=== PATIENT | male | born 1960 | race Asian ===

== ENCOUNTER 2018-11-17 16:01 | Inpatient (IN) | payer MEDICARE, MEDICAID ==
[~2018-11-17] VITALS: Ht 174 cm; Wt 69.9 kg
[2018-11-17 16:27] LABS: BASOPHILS # (AUTO) 0.1 K/uL (0.0-8.0); EOSINOPHILS # (AUTO) 0.1 K/uL (0.0-0.7); EOSINOPHILS % (AUTO) 2.3 % (0.0-7.0); HEMATOCRIT 38.5 % (36.7-47.1); HEMOGLOBIN 12.7 g/dL (12.5-16.3); LYMPHOCYTES # (AUTO) 1.5 K/uL (20.0-40.0); LYMPHOCYTES % (AUTO) 24.1 % (20.5-51.5); MEAN CORPUSCULAR HEMOGLOBIN 26.4 uug (23.8-33.4); MEAN CORPUSCULAR HGB CONC 33 g/dL (32.5-36.3); MONOCYTES # (AUTO) 0.5 K/uL (2.0-10.0); MONOCYTES % (AUTO) 7.8 % (0.0-11.0); NEUTROPHILS % (AUTO) 64.8 % (38.5-71.5); PLATELET COUNT (AUTO) 254 K/uL (152-348); RED BLOOD CELL COUNT(AUTO) 4.81 MIL/uL (4.06-5.63); WHITE BLOOD COUNT (AUTO) 6.2 K/uL (3.6-10.2)
[2018-11-17 16:31] LABS: CARBON DIOXIDE 28 mmol/L (21-32); CHLORIDE 105 mmol/L (98-107); CREATININE 1.2 mg/dL (0.6-1.3); GLUCOSE 117 mg/dL (74-106); POTASSIUM 4.1 mmol/L (3.5-5.1); UREA NITROGEN, BLOOD 16 mg/dL (7-18)
[2018-11-17 16:37] LABS: ALANINE AMINOTRANSFERASE 29 U/L (16-63); ALKALINE PHOSPHATASE 98 U/L (50-136); ASPARTATE AMINOTRANSFERASE 23 U/L (15-37); BILIRUBIN,DIRECT 0.1 mg/dL (0.0-0.2); BILIRUBIN,TOTAL 0.5 mg/dL (0.2-1.0); TOTAL PROTEIN, SERUM 8.7 g/dL (6.4-8.2)
--- NOTE | 2018-11-17 16:37 | NUR ---
pt rubbing both eyes and co dizziness. pt says was not dizzy last night but when asked if he was dizzy this morning, he said he was. md notified.
[2018-11-17 16:38] LABS: ACETAMINOPHEN < 2.0 ug/mL (10-30); ETHANOL < 3 MG/DL (0-0)
[2018-11-17] MEDS ORDERED: CLON0.5T PO (16:41)
[2018-11-17] MEDS ORDERED: LANS30CA54 PO (16:41)
[2018-11-17] MEDS ORDERED: MULT-213 PO (16:41)
[2018-11-17] MEDS ORDERED: CITA20TA19 PO (16:41)
[2018-11-17] MEDS ORDERED: METF-442 PO (16:41)
[2018-11-17] MEDS ORDERED: MAGN400T6 PO (16:41)
[2018-11-17] MEDS ORDERED: LOSA100T31 PO (16:41)
[2018-11-17] MEDS ORDERED: TAMS-3 PO (16:41)
[2018-11-17] MEDS ORDERED: QUET100T PO (16:41)
[2018-11-17] MEDS ORDERED: MAGN400O6 PO (16:50)
[2018-11-17] MEDS ORDERED: ATOR40TA PO (16:50)
[2018-11-17] MEDS ORDERED: BISA10SU61 RC (16:50)
[2018-11-17] MEDS ORDERED: GLUC1KIT IM (16:50)
[2018-11-17] MEDS ORDERED: METO50TA16 PO (16:50)
[2018-11-17] MEDS ORDERED: ACET-2605 PO (16:50)
[2018-11-17] MEDS ORDERED: ACET-2154 PO (16:50)
[2018-11-17] MEDS ORDERED: AMIN30LI2 PO (16:50)
[2018-11-17] MEDS ORDERED: DOCU-141 PO (16:50)
[2018-11-17] MEDS ORDERED: AMLO5TAB9 PO (16:50)
[2018-11-17] MEDS ORDERED: NA P133E RC (16:50)
[2018-11-17] MEDS ORDERED: METO-295 PO (16:50)
--- NOTE | 2018-11-17 17:59 | NUR ---
pt had small bm. perineal care provided.
--- NOTE | 2018-11-17 18:33 | NUR ---
called art for psych eval.
--- NOTE | 2018-11-17 19:25 | NUR ---
Pt medically cleared by Dr. Bridges.
--- NOTE | 2018-11-17 19:50 | NUR ---
Keith REEDERW arrived to ER for pt psych eval.
--- NOTE | 2018-11-17 20:01 | NUR ---
Art Capilla REAL ESTATE COORDINATOR at bedside for psych eval.
--- NOTE | 2018-11-17 20:54 | NUR ---
Report given to [facility].
[2018-11-17] MEDS ORDERED: LORAZEPAM 2 MG/1 ML VIAL IM ONE (21:30)
[2018-11-17] MEDS ORDERED: MAG HYDROX/AL HYDROX/SIMETH 30 ML LIQUID UDC PO PRN (21:30)
[2018-11-17] MEDS ORDERED: MAGNESIUM HYDROXIDE 30 ML LIQUID UDC PO PRN (21:30)
[2018-11-17] MEDS ORDERED: TEMAZEPAM 7.5 MG CAPSULE PO PRN (21:30)
[2018-11-17] MEDS ORDERED: LORAZEPAM 0.5 MG TABLET PO PRN (21:30)
[2018-11-17] MEDS ORDERED: BLOOD SUGAR DIAGNOSTIC 1 EACH STRIP VI ONE (21:30)
[2018-11-17] MEDS: BLOOD SUGAR DIAGNOSTIC 1 EACH STRIP VI SCH (21:35)
--- NOTE | 2018-11-17 22:34 | NUR ---
Admission Note: 58 year old male brought to MHU from ER via wheelchair, accompanied by ER staff. Patient admitted on a 5150 for GD under the care of Dr. Denton and Dr. Cross. Per hold: Patient is disoriented, confused and disorganized. Patient is a poor historian. He is agitated. non compliant with care. patient has poor insight and impulse control. Impaired judgement. patient is not able to provide for his food mcfp or clothing due to a mental disorder. Upon admission to the unit, oriented to the environment, Pt was agitated, banging on the table, irritated, uncooperative with care, avoids answering questions, guarded, disoriented, confused and disorganized. Reported to Dr. Denton. Received new order Ativan 1 mg Im x 1 now. Patient did not sign any admission paper work. cosigned with licensed staff. All information obtained through previous medical record. No sign or symptom of resp. distress, no indication of pain or discomfort. Patient was checked for contraband. Skin assessment was done, skin intact, no signs of discoloration, bruises or redness. No lice found. Valuables and belongings checked and were placed in the locker. Advisement and patient rights handbook given and explained to pt, will need reinforcement.
[2018-11-18] MEDS ORDERED: MAGNESIUM HYDROXIDE 30 ML LIQUID UDC PO PRN (00:15)
[2018-11-18] MEDS ORDERED: BISACODYL 10 MG SUPP.RECT RC PRN (00:15)
[2018-11-18] MEDS ORDERED: INSULIN REGULAR, HUMAN 300 UNIT/3 ML VIAL SQ PRN (00:15)
[2018-11-18] MEDS ORDERED: FLEET ENEMA 133 ML BOTTLE RC PRN (00:15)
[2018-11-18] MEDS ORDERED: DEXTROSE 50% 50 ML DISP.SYRIN IV PRN ×2 (00:15)
[2018-11-18] MEDS: BLOOD SUGAR DIAGNOSTIC 1 EACH STRIP VI SCH ×5 (06:34→20:36)
[2018-11-18] MEDS: PANTOPRAZOLE SODIUM 40 MG TABLET.DR PO SCH (06:38)
[2018-11-18 07:14] LABS: EOSINOPHILS # (AUTO) 0.1 K/uL (0.0-0.7); EOSINOPHILS % (AUTO) 2.5 % (0.0-7.0); MONOCYTES # (AUTO) 0.4 K/uL (2.0-10.0)
[2018-11-18 07:24] LABS: BILIRUBIN,TOTAL 0.6 mg/dL (0.2-1.0); CREATININE 1.3 mg/dL (0.6-1.3); POTASSIUM 4.3 mmol/L (3.5-5.1); TOTAL PROTEIN, SERUM 9.1 g/dL (6.4-8.2)
[2018-11-18 07:30] VITALS: BP 129/76
[2018-11-18] MEDS ORDERED: BLOOD SUGAR DIAGNOSTIC 1 EACH STRIP VI SCH (07:30)
[2018-11-18 07:36] LABS: BASOPHILS # (AUTO) 0.1 K/uL (0.0-8.0); BASOPHILS % (AUTO) 1.2 % (0.0-2.0); LYMPHOCYTES # (AUTO) 1.4 K/uL (20.0-40.0); LYMPHOCYTES % (AUTO) 26.9 % (20.5-51.5); MEAN CORPUSCULAR HEMOGLOBIN 25.2 uug (23.8-33.4); MEAN CORPUSCULAR HGB CONC 32 g/dL (32.5-36.3); MEAN CORPUSCULAR VOLUME 79.2 fL (73.0-96.2); MONOCYTES % (AUTO) 7.6 % (0.0-11.0); NEUTROPHILS # (AUTO) 3.3 K/uL (1.8-8.9); NEUTROPHILS % (AUTO) 61.8 % (38.5-71.5); PLATELET COUNT (AUTO) 260 K/uL (152-348); RED BLOOD CELL COUNT(AUTO) 5.06 MIL/uL (4.06-5.63); WHITE BLOOD COUNT (AUTO) 5.3 K/uL (3.6-10.2)
[2018-11-18 07:37] LABS: HEMATOCRIT 40.1 % (36.7-47.1); HEMOGLOBIN 12.7 g/dL (12.5-16.3)
[2018-11-18] MEDS ORDERED: Medication Not On Formulary EA (Amino Acids/Protein Hydrolys (Pro-Stat Liquid) 30 ML) PO SCH (09:00)
[2018-11-18] MEDS ORDERED: Medication Not On Formulary EA (Multivitamins W-Minerals (Multivitamin With Minerals) 1 PO SCH (09:00)
[2018-11-18] MEDS ORDERED: Medication Not On Formulary EA (Losartan Potassium 100 MG) PO SCH (09:00)
[2018-11-18] MEDS: MULTIVIT, IRON, MIN NO. 8, FA TABLET PO SCH (09:52)
[2018-11-18] MEDS: INSULIN REGULAR, HUMAN 300 UNIT/3 ML VIAL SQ PRN ×3 (09:52→21:18)
[2018-11-18] MEDS: DOCUSATE SODIUM 100 MG CAPSULE PO SCH ×2 (09:52→17:22)
[2018-11-18] MEDS: METFORMIN HCL 500 MG TABLET PO SCH ×2 (09:53→17:22)
[2018-11-18] MEDS: METOPROLOL TARTRATE 50 MG TABLET PO SCH ×2 (09:53→17:22)
[2018-11-18] MEDS: AMLODIPINE 5 MG TABLET PO SCH ×2 (09:54→20:26)
[2018-11-18] MEDS: LOSARTAN POTASSIUM 50 MG TABLET PO SCH (09:54)
[2018-11-18] MEDS: MAGNESIUM OXIDE 400 MG TABLET PO SCH ×2 (09:54→17:22)
[2018-11-18] MEDS ORDERED: LORAZEPAM 2 MG/1 ML VIAL IM ONE (12:45)
--- NOTE | 2018-11-18 12:50 | NUR ---
After agitation/anxiety episode discussed plan of care with Sav NEGATIVE NOTCHER, order to hold 2 units of noon insulin dose since patient not eating
--- NOTE | 2018-11-18 12:50 | NUR ---
PT NOTED SITTING ON CHANDANA CHAIR, VISITED BY TODAY. PT THEN BEGAN HAVING FULL BODY CONVULSIONS. RAPID RESPONSE CALLED. PT RESPONSIVE TO PAINFUL STIMULI. Alyx TAPIA ARRIVED TO UNIT AND ASSESSED PT. ORDERED ATIVAN 2MG IM FOR SEVERE ANXIETY. NOTED AND WILL CARRY OUT.
[2018-11-18] MEDS: DIVALPROEX 250 MG TABLET.DR PO SCH ×3 (13:40→17:22)
--- NOTE | 2018-11-18 14:45 | NUR ---
Initial discharge plan: Pt resides at [facility], a senior living facility, located at [address] [place] [id number]; [phone]. Per daughter, family plans to have pt return to the facility after discharge, and pediatric social worker spoke with Gali, Dictionary Editor at [facility], and she states that patient is allowed to return after discharge.
--- NOTE | 2018-11-18 14:48 | NUR ---
shoddy mill worker contacted next of kin, daughter Fabiola Hamilton [[phone]], and gathered further information regarding patient's history and mental health. 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 Pt was then placed at [facility], [facility] [place] [facility], located at [address] [place] [address]; [phone], in May 2018. Per daughter, family plans to have pt return to the facility after discharge, and nursing home social worker spoke with Gali, Still Worker Helper at [facility], and she states that patient is allowed to return to the facility after pt is discharged.
--- NOTE | 2018-11-18 15:41 | NUR ---
Spoke to pharmacist Pia to clarify celexa 0900 dose and depakote 0900,1300 dose that appeared overdue. She stated that 's consent was signed and entered 1434 for these medications, ordered to proceed with administration of celexa and wait to administer 1700 dose of depakote.
[2018-11-18] MEDS ORDERED: METOCLOPRAMIDE HCL 10 MG TABLET PO ONE (16:45)
[2018-11-18 16:51] VITALS: BP 126/75
[2018-11-18] MEDS: CITALOPRAM 20 MG TABLET PO SCH (17:22)
--- NOTE | 2018-11-18 17:29 | NUR ---
End of shift report: Patient resting up in gerichair, skin precautions in place. Safety precautions in place. Patient compliant with nursing care in the morning, evening visit from family seemed to have agitated the patient and made him anxious. Rapid response called, patient was shaking and banging his right arm against the wall. Sav LOSS PREVENTION SPECIALIST responded, one dime dose of 2mg Ativan IM given, patient responded well. Now appears calm and conversing. Swallow eval done today, per Speech Therapist thin liquids and pureed.Unable to obtain urine sample, will endorse to oncoming shift.
[2018-11-18] MEDS: TAMSULOSIN HCL 0.4 MG CAP.SR.24H PO SCH (20:26)
[2018-11-18] MEDS: ATORVASTATIN 40 MG TABLET PO SCH (20:26)
[2018-11-18] MEDS: QUETIAPINE FUMARATE 100 MG TABLET PO SCH (20:27)
[2018-11-18 20:55] VITALS: BP 114/75
--- NOTE | 2018-11-18 22:00 | NUR ---
received to care, up in [facility] for safety, pleasant upon approach. compliant with medications and staff direction. aspiration precautions observed. as of 2199, he appears to be asleep. no episodes of convulsions, or tremors, noted. no distress noted. will continue to monitor closely.
[2018-11-19] MEDS: PANTOPRAZOLE SODIUM 40 MG TABLET.DR PO SCH (06:12)
[2018-11-19] MEDS: BLOOD SUGAR DIAGNOSTIC 1 EACH STRIP VI SCH ×4 (06:19→20:32)
--- NOTE | 2018-11-19 07:24 | NUR ---
slept 7.0 hours. no further episodes of tremors. no distress noted.
[2018-11-19 07:30] VITALS: BP 119/73
[2018-11-19 07:59] LABS: BASOPHILS % (AUTO) 0.8 % (0.0-2.0); EOSINOPHILS # (AUTO) 0.2 K/uL (0.0-0.7); EOSINOPHILS % (AUTO) 2.7 % (0.0-7.0); HEMATOCRIT 37.4 % (36.7-47.1); HEMOGLOBIN 11.9 g/dL (12.5-16.3); LYMPHOCYTES # (AUTO) 1.5 K/uL (20.0-40.0); LYMPHOCYTES % (AUTO) 25.3 % (20.5-51.5); MEAN CORPUSCULAR HEMOGLOBIN 25.1 uug (23.8-33.4); MEAN CORPUSCULAR HGB CONC 32 g/dL (32.5-36.3); MEAN CORPUSCULAR VOLUME 78.7 fL (73.0-96.2); MONOCYTES # (AUTO) 0.4 K/uL (2.0-10.0); MONOCYTES % (AUTO) 7.3 % (0.0-11.0); NEUTROPHILS # (AUTO) 3.8 K/uL (1.8-8.9); NEUTROPHILS % (AUTO) 63.9 % (38.5-71.5); PLATELET COUNT (AUTO) 240 K/uL (152-348); RED BLOOD CELL COUNT(AUTO) 4.76 MIL/uL (4.06-5.63); WHITE BLOOD COUNT (AUTO) 5.9 K/uL (3.6-10.2)
[2018-11-19] MEDS: PROTEIN SUPPLEMENT (PROSTAT) 30 ML LIQUID PO SCH (08:00)
[2018-11-19 08:06] LABS: THYROID STIMULATING HORMONE 2.873 mIU/mL (0.358-3.740)
[2018-11-19 08:42] LABS: BILIRUBIN,TOTAL 0.5 mg/dL (0.2-1.0); CREATININE 1.2 mg/dL (0.6-1.3); MAGNESIUM 1.9 mg/dL (1.8-2.4); PHOSPHOROUS 3.3 mg/dL (2.5-4.9); TOTAL PROTEIN, SERUM 7.9 g/dL (6.4-8.2)
[2018-11-19] MEDS: CITALOPRAM 20 MG TABLET PO SCH (10:59)
[2018-11-19] MEDS: LOSARTAN POTASSIUM 50 MG TABLET PO SCH (11:00)
[2018-11-19] MEDS: METFORMIN HCL 500 MG TABLET PO SCH ×2 (11:00→16:46)
[2018-11-19] MEDS: MULTIVIT, IRON, MIN NO. 8, FA TABLET PO SCH (11:00)
[2018-11-19] MEDS: DOCUSATE SODIUM 100 MG CAPSULE PO SCH ×2 (11:01→16:55)
[2018-11-19] MEDS: MAGNESIUM OXIDE 400 MG TABLET PO SCH ×2 (11:01→16:45)
[2018-11-19] MEDS: AMLODIPINE 5 MG TABLET PO SCH ×2 (11:02→20:22)
[2018-11-19] MEDS: METOPROLOL TARTRATE 50 MG TABLET PO SCH ×2 (11:03→16:45)
[2018-11-19] MEDS: DIVALPROEX SPRINKLE 125 MG CAP.SPRINK PO SCH ×2 (12:44→16:44)
[2018-11-19 16:00] VITALS: BP 110/69
[2018-11-19] MEDS: INSULIN REGULAR, HUMAN 300 UNIT/3 ML VIAL SQ PRN ×2 (16:39→20:34)
--- NOTE | 2018-11-19 17:26 | NUR ---
Gps/Operations Coordinator- Toileted at a regular intervals, continent of his bowels, toileted as needed. Assisted with his meals, was fed, eating well, swallow precautions , thick liquids to nectar consistency. Fluids encouraged. Does not carry on conversations answeres to simple yes and no. Noted and observed couple of times, stiffness of his extremities, shaking, tremors but tends to go away in few seconds. patient eyes are open , follws simple directions/one step command. Safety reviewed and emphasized.
[2018-11-19] MEDS: ATORVASTATIN 40 MG TABLET PO SCH (20:05)
[2018-11-19] MEDS: QUETIAPINE FUMARATE 100 MG TABLET PO SCH (20:05)
[2018-11-19] MEDS: TAMSULOSIN HCL 0.4 MG CAP.SR.24H PO SCH (20:05)
[2018-11-19 20:31] VITALS: BP 122/78
[2018-11-20] MEDS: BLOOD SUGAR DIAGNOSTIC 1 EACH STRIP VI SCH ×4 (06:58→21:47)
[2018-11-20] MEDS: PANTOPRAZOLE SODIUM 40 MG TABLET.DR PO SCH (06:58)
[2018-11-20 07:30] VITALS: BP 116/70
[2018-11-20] MEDS: PROTEIN SUPPLEMENT (PROSTAT) 30 ML LIQUID PO SCH (08:00)
[2018-11-20] MEDS: DIVALPROEX SPRINKLE 125 MG CAP.SPRINK PO SCH ×3 (08:24→17:23)
[2018-11-20] MEDS: MULTIVIT, IRON, MIN NO. 8, FA TABLET PO SCH (08:24)
[2018-11-20] MEDS: AMLODIPINE 5 MG TABLET PO SCH ×2 (08:25→21:05)
[2018-11-20] MEDS: DOCUSATE SODIUM 100 MG CAPSULE PO SCH ×2 (08:25→17:23)
[2018-11-20] MEDS: MAGNESIUM OXIDE 400 MG TABLET PO SCH ×2 (08:25→17:23)
[2018-11-20] MEDS: CITALOPRAM 20 MG TABLET PO SCH (08:25)
[2018-11-20] MEDS: METOPROLOL TARTRATE 50 MG TABLET PO SCH ×2 (08:25→17:24)
[2018-11-20] MEDS: METFORMIN HCL 500 MG TABLET PO SCH ×2 (08:25→17:23)
[2018-11-20] MEDS: LOSARTAN POTASSIUM 50 MG TABLET PO SCH (08:26)
[2018-11-20 16:00] VITALS: BP 122/79
[2018-11-20] MEDS: INSULIN REGULAR, HUMAN 300 UNIT/3 ML VIAL SQ PRN (17:22)
--- NOTE | 2018-11-20 18:00 | NUR ---
Gps/Cad Draftsman- Remains continued needs in feeding patient, swallow precautions, meds were crushed administered with apple sauce. Thick liquids to nectar consistency .Bladder incontinence noted, offered to be toileted at a regular intervals, adequate fluid intake.Minimal tremors, stiffness when initiating simple tasks.
--- NOTE | 2018-11-20 19:20 | NUR ---
RECEIVED PT AWAKE, ALERT AND ORIENTEDX 2 PT SHOWS NO SIGNS OF ACUTE DISTRESS. PT PLEASANT WHEN APPROACHED. PT SOMETIMES PRETEND TO SLEEP WHEN YOU GET NEAR HIM. PT CALM. SAFETY AND COMFORT PROVIDED. WILL CONTINUE TO MONITOR.
[2018-11-20 20:43] VITALS: BP 127/80
[2018-11-20] MEDS: QUETIAPINE FUMARATE 100 MG TABLET PO SCH (21:04)
[2018-11-20] MEDS: TAMSULOSIN HCL 0.4 MG CAP.SR.24H PO SCH (21:04)
[2018-11-20] MEDS: ACETAMINOPHEN 325 MG TABLET PO PRN (21:04)
[2018-11-20] MEDS: ATORVASTATIN 40 MG TABLET PO SCH (21:05)
[2018-11-20] MEDS: TEMAZEPAM 15 MG CAPSULE PO PRN (23:43)
[2018-11-21] MEDS: PANTOPRAZOLE SODIUM 40 MG TABLET.DR PO SCH ×2 (06:01→07:00)
[2018-11-21] MEDS: BLOOD SUGAR DIAGNOSTIC 1 EACH STRIP VI SCH ×4 (06:34→20:40)
--- NOTE | 2018-11-21 06:40 | NUR ---
PT HAVE EPISODES OF PRETENDING TO SLEEP WHEN YOU GET NEAR HIM. PT NEEDS REORIENTATION. NEEDS TWO ASSIST WHEN BRINGING HIM TO THE BATHROOM. SAFETY PROVIDED. WILL CONTINUE TO MONITOR.
--- NOTE | 2018-11-21 06:42 | NUR ---
PT SLEPT 5.3 HOURS. PT SHOWS NO SIGNS OF ACUTE DISTRESS. PRESCRIBED MEDICATION GIVEN AND PT TOLERATED IT WELL.PT GIVEN TYLENOL 2104H . AND RESTORIL AT 2343H. PT COOPERATIVE WITH CARE. SAFETY AND COMFORT PROVIDED. WILL ENDORSE ACCORDINGLY TO INCOMING NURSE FOR CONTINUITY OF CARE.
--- NOTE | 2018-11-21 06:50 | NUR ---
PT REFUSED HIS PROTONIX. WASTED THE PROTONIX WITH ANOTHER RN WITNESS. PT STABLE. ENDORSE TO INCOMING NURSE.
[2018-11-21 07:30] VITALS: BP 109/65
[2018-11-21] MEDS: DOCUSATE SODIUM 100 MG CAPSULE PO SCH ×2 (08:54→17:42)
[2018-11-21] MEDS: CITALOPRAM 20 MG TABLET PO SCH (08:55)
[2018-11-21] MEDS: MAGNESIUM OXIDE 400 MG TABLET PO SCH ×2 (08:55→17:42)
[2018-11-21] MEDS: DIVALPROEX SPRINKLE 125 MG CAP.SPRINK PO SCH ×3 (08:55→17:42)
[2018-11-21] MEDS: METOPROLOL TARTRATE 50 MG TABLET PO SCH ×2 (08:56→17:43)
[2018-11-21] MEDS: AMLODIPINE 5 MG TABLET PO SCH ×2 (08:56→20:39)
[2018-11-21] MEDS: LOSARTAN POTASSIUM 50 MG TABLET PO SCH (08:56)
[2018-11-21] MEDS: LORAZEPAM 1 MG TABLET PO PRN (09:09)
[2018-11-21] MEDS: METFORMIN HCL 500 MG TABLET PO SCH ×2 (09:10→17:42)
[2018-11-21] MEDS: PROTEIN SUPPLEMENT (PROSTAT) 30 ML LIQUID PO SCH (09:10)
[2018-11-21] MEDS: MULTIVIT, IRON, MIN NO. 8, FA TABLET PO SCH (09:10)
[2018-11-21] MEDS: INSULIN REGULAR, HUMAN 300 UNIT/3 ML VIAL SQ PRN ×2 (12:32→20:41)
[2018-11-21 15:28] VITALS: BP 130/85
[2018-11-21 20:00] VITALS: BP 120/79
[2018-11-21] MEDS: ATORVASTATIN 40 MG TABLET PO SCH (20:38)
[2018-11-21] MEDS: TAMSULOSIN HCL 0.4 MG CAP.SR.24H PO SCH (20:38)
[2018-11-21] MEDS: QUETIAPINE FUMARATE 100 MG TABLET PO SCH (20:39)
--- NOTE | 2018-11-21 22:00 | NUR ---
received to care, up in sai chair for safety, pleasant upon approach. compliant with medications and staff direction. bedtime snack given; aspiration precautions observed. as of 2200, he appears to be asleep, in bed. no distress noted. will continue to monitor closely.
--- NOTE | 2018-11-22 06:00 | NUR ---
slept 6.0 hours. no distress noted.
[2018-11-22] MEDS: BLOOD SUGAR DIAGNOSTIC 1 EACH STRIP VI SCH ×4 (06:37→21:21)
[2018-11-22] MEDS: PANTOPRAZOLE SODIUM 40 MG TABLET.DR PO SCH (06:37)
[2018-11-22 06:52] LABS: *BILIRUBIN,URIN NEGATIVE (NEGATIVE); *BLOOD, URINE NEGATIVE (NEGATIVE); *CLARITY,URINE CLEAR (CLEAR); *COLOR,URINE YELLOW (YELLOW); *KETONES,URINE 1+ (NEGATIVE); *UROBILINOGEN,URINE 0.2 E.U./dl (NORMAL); LEUKOCYTE ESTERASE ,URINE NEGATIVE (NEGATIVE); NITRITE, URINE NEGATIVE (NEGATIVE); PH,URINE 8.5 (5.0-8.0); UGLUCOSE NEGATIVE (NEGATIVE)
[2018-11-22 07:28] LABS: BACTERIA,URINE NONE SEEN /HPF (NONE SEEN); RBC,URINE 0-3 /HPF (0-3); SQUAMOUS EPITHELIAL CELL,UR NONE SEEN /HPF (NONE SEEN); WBC,URINE 0-3 /HPF (0-3)
[2018-11-22 07:30] VITALS: BP 135/79
[2018-11-22] MEDS: LORAZEPAM 1 MG TABLET PO PRN (08:11)
[2018-11-22] MEDS: DOCUSATE SODIUM 100 MG CAPSULE PO SCH ×2 (08:31→16:56)
[2018-11-22] MEDS: DIVALPROEX SPRINKLE 125 MG CAP.SPRINK PO SCH ×3 (08:31→16:56)
[2018-11-22] MEDS: METFORMIN HCL 500 MG TABLET PO SCH ×2 (08:31→17:04)
[2018-11-22] MEDS: MULTIVIT, IRON, MIN NO. 8, FA TABLET PO SCH (08:31)
[2018-11-22] MEDS: MAGNESIUM OXIDE 400 MG TABLET PO SCH ×2 (08:31→16:56)
[2018-11-22] MEDS: CITALOPRAM 20 MG TABLET PO SCH (08:31)
[2018-11-22] MEDS: LOSARTAN POTASSIUM 50 MG TABLET PO SCH (08:32)
[2018-11-22] MEDS: METOPROLOL TARTRATE 50 MG TABLET PO SCH ×2 (08:32→16:57)
[2018-11-22] MEDS: AMLODIPINE 5 MG TABLET PO SCH ×2 (08:32→21:20)
[2018-11-22] MEDS: PROTEIN SUPPLEMENT (PROSTAT) 30 ML LIQUID PO SCH (08:33)
[2018-11-22] MEDS: INSULIN REGULAR, HUMAN 300 UNIT/3 ML VIAL SQ PRN ×2 (12:18→21:22)
[2018-11-22 15:52] VITALS: BP 122/78
[2018-11-22 19:47] VITALS: BP 118/78
[2018-11-22] MEDS: TAMSULOSIN HCL 0.4 MG CAP.SR.24H PO SCH (21:19)
[2018-11-22] MEDS: TEMAZEPAM 15 MG CAPSULE PO PRN (21:20)
[2018-11-22] MEDS: ATORVASTATIN 40 MG TABLET PO SCH (21:20)
[2018-11-22] MEDS: QUETIAPINE FUMARATE 100 MG TABLET PO SCH (21:20)
--- NOTE | 2018-11-23 05:44 | NUR ---
Patient slept 8.30 hours last night. No distress noted.
[2018-11-23] MEDS: PANTOPRAZOLE SODIUM 40 MG TABLET.DR PO SCH (06:11)
[2018-11-23] MEDS: BLOOD SUGAR DIAGNOSTIC 1 EACH STRIP VI SCH ×4 (06:12→20:39)
[2018-11-23 07:30] VITALS: BP 111/73
[2018-11-23] MEDS: METFORMIN HCL 500 MG TABLET PO SCH ×2 (08:29→17:16)
[2018-11-23] MEDS: DOCUSATE SODIUM 100 MG CAPSULE PO SCH ×2 (08:29→17:26)
[2018-11-23] MEDS: CITALOPRAM 20 MG TABLET PO SCH (08:29)
[2018-11-23] MEDS: MAGNESIUM OXIDE 400 MG TABLET PO SCH ×2 (08:30→17:17)
[2018-11-23] MEDS: DIVALPROEX SPRINKLE 125 MG CAP.SPRINK PO SCH ×3 (08:30→17:17)
[2018-11-23] MEDS: METOPROLOL TARTRATE 50 MG TABLET PO SCH ×2 (08:31→17:17)
[2018-11-23] MEDS: MULTIVIT, IRON, MIN NO. 8, FA TABLET PO SCH (08:31)
[2018-11-23] MEDS: PROTEIN SUPPLEMENT (PROSTAT) 30 ML LIQUID PO SCH (08:38)
[2018-11-23] MEDS: INSULIN REGULAR, HUMAN 300 UNIT/3 ML VIAL SQ PRN ×4 (09:37→20:41)
[2018-11-23] MEDS: LOSARTAN POTASSIUM 50 MG TABLET PO SCH (12:16)
[2018-11-23] MEDS: AMLODIPINE 5 MG TABLET PO SCH ×3 (12:23→21:00)
[2018-11-23 16:00] VITALS: BP 126/79
[2018-11-23] MEDS: TAMSULOSIN HCL 0.4 MG CAP.SR.24H PO SCH ×2 (20:38→21:00)
[2018-11-23] MEDS: QUETIAPINE FUMARATE 100 MG TABLET PO SCH ×2 (20:38→21:00)
[2018-11-23] MEDS: ATORVASTATIN 40 MG TABLET PO SCH ×2 (20:39→21:00)
[2018-11-23 21:24] VITALS: BP 128/82
--- NOTE | 2018-11-23 22:07 | NUR ---
Multiple attempts were made to give the patients medications. Patient was awake in the chair and the minute was spoken to, closed eyes and pretended to be asleep. This continued each and every time. PM medications were held for this patient for safety.
[2018-11-24] MEDS: PANTOPRAZOLE SODIUM 40 MG TABLET.DR PO SCH (06:09)
[2018-11-24] MEDS: BLOOD SUGAR DIAGNOSTIC 1 EACH STRIP VI SCH ×4 (06:09→20:19)
[2018-11-24 07:47] VITALS: BP 147/78
[2018-11-24] MEDS: PROTEIN SUPPLEMENT (PROSTAT) 30 ML LIQUID PO SCH (08:00)
[2018-11-24] MEDS: MULTIVIT, IRON, MIN NO. 8, FA TABLET PO SCH (09:03)
[2018-11-24] MEDS: MAGNESIUM OXIDE 400 MG TABLET PO SCH ×2 (09:03→17:31)
[2018-11-24] MEDS: LOSARTAN POTASSIUM 50 MG TABLET PO SCH (09:03)
[2018-11-24] MEDS: METOPROLOL TARTRATE 50 MG TABLET PO SCH ×2 (09:04→17:31)
[2018-11-24] MEDS: CITALOPRAM 20 MG TABLET PO SCH (09:04)
[2018-11-24] MEDS: DOCUSATE SODIUM 100 MG CAPSULE PO SCH ×2 (09:04→17:31)
[2018-11-24] MEDS: DIVALPROEX SPRINKLE 125 MG CAP.SPRINK PO SCH ×3 (09:04→17:31)
[2018-11-24] MEDS: METFORMIN HCL 500 MG TABLET PO SCH ×2 (09:04→17:31)
[2018-11-24] MEDS: AMLODIPINE 5 MG TABLET PO SCH ×2 (09:05→20:28)
[2018-11-24] MEDS: ACETAMINOPHEN 325 MG TABLET PO PRN (12:56)
[2018-11-24 16:36] VITALS: BP 138/85
[2018-11-24] MEDS: INSULIN REGULAR, HUMAN 300 UNIT/3 ML VIAL SQ PRN ×2 (17:29→20:43)
[2018-11-24] MEDS: QUETIAPINE FUMARATE 100 MG TABLET PO SCH (20:27)
[2018-11-24] MEDS: ATORVASTATIN 40 MG TABLET PO SCH (20:27)
[2018-11-24] MEDS: TAMSULOSIN HCL 0.4 MG CAP.SR.24H PO SCH (20:28)
[2018-11-24 21:26] VITALS: BP 135/82
--- NOTE | 2018-11-24 21:29 | NUR ---
RECEIVED PATIENT IN THE HALLWAY, PATIENT IS CALM. MED COMPLIANT. INTERACTS WITH STAFF AND PEERS. NO BEHAVIORAL ISSUE AT THIS TIME. WILL REMAIN IN A PSYCH SETTING FOR FURTHER EVALUATION AND TREATMENT.
[2018-11-25] MEDS: BLOOD SUGAR DIAGNOSTIC 1 EACH STRIP VI SCH ×2 (06:39→12:14)
[2018-11-25] MEDS: PANTOPRAZOLE SODIUM 40 MG TABLET.DR PO SCH (06:39)
[2018-11-25 07:30] VITALS: BP 118/72
[2018-11-25] MEDS: METFORMIN HCL 500 MG TABLET PO SCH (08:39)
[2018-11-25] MEDS: MAGNESIUM OXIDE 400 MG TABLET PO SCH (08:39)
[2018-11-25] MEDS: LOSARTAN POTASSIUM 50 MG TABLET PO SCH (08:40)
[2018-11-25] MEDS: METOPROLOL TARTRATE 50 MG TABLET PO SCH (08:40)
[2018-11-25 08:41] VITALS: BP 118/72
[2018-11-25] MEDS: MULTIVIT, IRON, MIN NO. 8, FA TABLET PO SCH (08:41)
[2018-11-25] MEDS: AMLODIPINE 5 MG TABLET PO SCH (08:41)
[2018-11-25] MEDS: DOCUSATE SODIUM 100 MG CAPSULE PO SCH (08:41)
[2018-11-25] MEDS: CITALOPRAM 20 MG TABLET PO SCH (08:41)
[2018-11-25] MEDS: DIVALPROEX SPRINKLE 125 MG CAP.SPRINK PO SCH ×2 (08:42→12:37)
[2018-11-25] MEDS: PROTEIN SUPPLEMENT (PROSTAT) 30 ML LIQUID PO SCH (08:44)
--- NOTE | 2018-11-25 12:19 | NUR ---
Discharge Note: [facility] [facility] [address]; [facility]Please arrange ambulance for this patient by 2:00pm. Spoke to Marilou, Lithographic Retoucher Apprentice � who stated facility is ready to accept patient today. Spoke with patient�s , Calderon Hamilton [[phone]] who is agreeable with discharge plan. Patient is alert and oriented x1-2 but is willing to return to facility. Patient will follow up with Dr. Galarza (Wagon Driver Salesperson) and Dr. Gifford (Psychiatrist). Patient was provided with outpatient mental health resources to [facility] , [facility] , and the National Suicide Prevention Lifeline .
--- NOTE | 2018-11-25 14:38 | NUR ---
1130 Called [facility] spoke with MIKEY Blancas who will admit the patient- informed regarding patient will be discharged back to their facility. RN informed medications to continue upon hospital discharge, mental and medical status of the patient. 1430 Patient discharge to facility mentioned above by ambulance, patient alert and ox2, denies SI/HI. No delusion. NO a/v hallucination noted.
== END 2018-11-25 14:30 | DRG 885 ==
LOC: ER 16:04 → GPS 21:20
PROVIDERS: ADMIT Psychiatry & Neurology Psychiatry; ATTEND Nurse Practitioner Acute Care
PROC: 0HBRXZZ Excision of Toe Nail, External Approach (ICD-10-PCS; principal; 2018-11-22)
DX: F29 Unspecified psychosis not due to a substance or known physiological condition (principal); E11.65 Type 2 diabetes mellitus with hyperglycemia; F03.91 Unspecified dementia, unspecified severity, with behavioral disturbance; K21.9 Gastro-esophageal reflux disease without esophagitis; N40.0 Benign prostatic hyperplasia without lower urinary tract symptoms; F41.9 Anxiety disorder, unspecified; E78.5 Hyperlipidemia, unspecified; Z87.11 Personal history of peptic ulcer disease; Z86.73 Personal history of transient ischemic attack (TIA), and cerebral infarction without residual deficits; L60.3 Nail dystrophy; R26.2 Difficulty in walking, not elsewhere classified; I10 Essential (primary) hypertension; Z79.84 Long term (current) use of oral hypoglycemic drugs; Z79.899 Other long term (current) drug therapy; Z86.59 Personal history of other mental and behavioral disorders; D64.9 Anemia, unspecified; Z91.19 Patient's noncompliance with other medical treatment and regimen
CPT/HCPCS: 36415; 70450; 83735; 84100; 84443; 85025; 87086; 93005; A4663; C1758; G0480; G0480-TC; J1815; J2060; J3490

== ENCOUNTER 2019-01-24 12:06 | Inpatient (IN) | payer MEDICARE, OTHER ==
[~2019-01-24] VITALS: Ht 160 cm; Wt 71.7 kg
[~2019-01-24 12:06] MED LIST: ACET-2154 PO; ACET-2605 PO; AMIN30LI2 PO; AMLO5TAB9 PO; ATOR40TA PO; BISA10SU61 RC; CITA20TA19 PO; CLON0.5T PO; DOCU-141 PO; GLUC1KIT IM; LANS30CA54 PO; LOSA100T31 PO; MAGN400O6 PO; MAGN400T8 PO; METF-442 PO; METO-295 PO; METO50TA16 PO; MULT-213 PO; NA P133E RC; QUET100T PO; TAMS-3 PO
[2019-01-24] MEDS ORDERED: OLANZAPINE 10 MG VIAL IM ONE ×2 (12:20→12:30)
[2019-01-24] MEDS ORDERED: DIVA250T47 PO (12:35)
[2019-01-24] MEDS ORDERED: PANT40TA4 PO (12:35)
[2019-01-24] MEDS ORDERED: INSU100V28 (12:35)
[2019-01-24 13:15] LABS: BASOPHILS # (AUTO) 0.1 K/uL (0.0-8.0); BASOPHILS % (AUTO) 1.2 % (0.0-2.0); EOSINOPHILS # (AUTO) 0.2 K/uL (0.0-0.7); EOSINOPHILS % (AUTO) 2.7 % (0.0-7.0); HEMATOCRIT 37.1 % (36.7-47.1); LYMPHOCYTES # (AUTO) 1.6 K/uL (20.0-40.0); LYMPHOCYTES % (AUTO) 25.1 % (20.5-51.5); MEAN CORPUSCULAR HEMOGLOBIN 26.3 uug (23.8-33.4); MEAN CORPUSCULAR HGB CONC 32 g/dL (32.5-36.3); MEAN CORPUSCULAR VOLUME 81.6 fL (73.0-96.2); MONOCYTES # (AUTO) 0.6 K/uL (2.0-10.0); MONOCYTES % (AUTO) 9.5 % (0.0-11.0); NEUTROPHILS # (AUTO) 3.8 K/uL (1.8-8.9); NEUTROPHILS % (AUTO) 61.5 % (38.5-71.5); PLATELET COUNT (AUTO) 199 K/uL (152-348); RED BLOOD CELL COUNT(AUTO) 4.54 MIL/uL (4.06-5.63); WHITE BLOOD COUNT (AUTO) 6.2 K/uL (3.6-10.2)
[2019-01-24 13:22] LABS: CARBON DIOXIDE 25 mmol/L (21-32); CHLORIDE 102 mmol/L (98-107); CREATININE 1.2 mg/dL (0.6-1.3); GLUCOSE 143 mg/dL (74-106); POTASSIUM 4.2 mmol/L (3.5-5.1); UREA NITROGEN, BLOOD 14 mg/dL (7-18)
[2019-01-24 13:27] LABS: ETHANOL < 3 MG/DL (0-0)
[2019-01-24 13:28] LABS: ALANINE AMINOTRANSFERASE 22 U/L (16-63); ALKALINE PHOSPHATASE 90 U/L (50-136); ASPARTATE AMINOTRANSFERASE 14 U/L (15-37); BILIRUBIN,DIRECT 0.1 mg/dL (0.0-0.2); BILIRUBIN,TOTAL 0.3 mg/dL (0.2-1.0); TOTAL PROTEIN, SERUM 7.6 g/dL (6.4-8.2)
[2019-01-24 13:29] LABS: ACETAMINOPHEN < 2.0 ug/mL (10-30)
[2019-01-24 14:14] LABS: *BILIRUBIN,URIN NEGATIVE (NEGATIVE); *CLARITY,URINE CLEAR (CLEAR); *COLOR,URINE YELLOW (YELLOW); *KETONES,URINE NEGATIVE (NEGATIVE); *UROBILINOGEN,URINE 0.2 E.U./dl (NORMAL); LEUKOCYTE ESTERASE ,URINE NEGATIVE (NEGATIVE); NITRITE, URINE NEGATIVE (NEGATIVE); PH,URINE 5.5 (5.0-8.0)
[2019-01-24 14:15] LABS: *BLOOD, URINE NEGATIVE (NEGATIVE); UGLUCOSE 1+ (NEGATIVE)
[2019-01-24 14:23] LABS: BACTERIA,URINE NONE SEEN /HPF (NONE SEEN); MUCUS,URINE FEW /LPF (0-FEW); RBC,URINE 0-3 /HPF (0-3); SQUAMOUS EPITHELIAL CELL,UR NONE SEEN /HPF (NONE SEEN); URINE AMORPHOUS URATE FEW /HPF; WBC,URINE 0-3 /HPF (0-3)
[2019-01-24 14:25] LABS: *AMPHETAMINE, URINE NEGATIVE (NEGATIVE); *BARBITURATE, URINE NEGATIVE (NEGATIVE); *CANNABINOID, URINE NEGATIVE (NEGATIVE); *COCCAINE, URINE NEGATIVE (NEGATIVE); *OPIATE, URINE NEGATIVE (NEGATIVE); *PHENCYCLIDINE SCREEN,URINE NEGATIVE (NEGATIVE)
[2019-01-24] MEDS ORDERED: ACETAMINOPHEN 325 MG TABLET PO PRN (15:00)
[2019-01-24] MEDS ORDERED: MAGNESIUM HYDROXIDE 30 ML LIQUID UDC PO PRN ×2 (15:00→20:45)
[2019-01-24] MEDS ORDERED: BLOOD SUGAR DIAGNOSTIC 1 EACH STRIP VI ONE (15:00)
[2019-01-24] MEDS ORDERED: MAG HYDROX/AL HYDROX/SIMETH 30 ML LIQUID UDC PO PRN (15:00)
[2019-01-24 16:02] VITALS: BP 137/86
[2019-01-24] MEDS ORDERED: FLEET ENEMA 133 ML BOTTLE RC PRN (20:45)
[2019-01-24] MEDS ORDERED: DEXTROSE 50% 50 ML DISP.SYRIN IV PRN (20:45)
[2019-01-24] MEDS ORDERED: BISACODYL 10 MG SUPP.RECT RC PRN (20:45)
[2019-01-24] MEDS: TAMSULOSIN HCL 0.4 MG CAP.SR.24H PO SCH (20:58)
[2019-01-24] MEDS: ATORVASTATIN 40 MG TABLET PO SCH (20:58)
[2019-01-24] MEDS: AMLODIPINE 5 MG TABLET PO SCH (20:59)
[2019-01-24 21:09] VITALS: BP 146/94
[2019-01-24] MEDS: BLOOD SUGAR DIAGNOSTIC 1 EACH STRIP VI SCH (21:11)
[2019-01-24] MEDS: INSULIN REGULAR, HUMAN 300 UNIT/3 ML VIAL SQ PRN (21:13)
[2019-01-25] MEDS: BLOOD SUGAR DIAGNOSTIC 1 EACH STRIP VI SCH ×4 (06:10→20:07)
[2019-01-25 07:30] VITALS: BP 143/91
[2019-01-25] MEDS: LOSARTAN POTASSIUM 50 MG TABLET PO SCH (08:07)
[2019-01-25] MEDS: MAGNESIUM OXIDE 400 MG TABLET PO SCH ×2 (08:07→16:53)
[2019-01-25] MEDS: LORAZEPAM 1 MG TABLET PO PRN (08:07)
[2019-01-25] MEDS: AMLODIPINE 5 MG TABLET PO SCH ×2 (08:07→20:08)
[2019-01-25] MEDS: DOCUSATE SODIUM 100 MG CAPSULE PO SCH ×2 (08:08→16:52)
[2019-01-25] MEDS: PANTOPRAZOLE SODIUM 40 MG TABLET.DR PO SCH (08:08)
[2019-01-25] MEDS: METOPROLOL TARTRATE 50 MG TABLET PO SCH ×2 (08:08→20:09)
[2019-01-25] MEDS: METFORMIN HCL 500 MG TABLET PO SCH ×2 (08:10→16:52)
[2019-01-25] MEDS: MULTIVIT, IRON, MIN NO. 8, FA TABLET PO SCH (08:11)
[2019-01-25] MEDS ORDERED: Medication Not On Formulary EA (Losartan Potassium 100 MG) PO SCH (09:00)
[2019-01-25] MEDS ORDERED: Medication Not On Formulary EA (Multivitamins W-Minerals (Multivitamin With Minerals) 1 PO SCH (09:00)
[2019-01-25] MEDS: INSULIN REGULAR, HUMAN 300 UNIT/3 ML VIAL SQ PRN ×3 (11:39→20:11)
[2019-01-25 16:29] VITALS: BP 162/91
[2019-01-25] MEDS: DIVALPROEX SPRINKLE 125 MG CAP.SPRINK PO SCH ×2 (16:52→20:08)
[2019-01-25 19:57] VITALS: BP 138/89
[2019-01-25] MEDS: ATORVASTATIN 40 MG TABLET PO SCH (20:07)
[2019-01-25] MEDS: QUETIAPINE FUMARATE 100 MG TABLET PO SCH (20:08)
[2019-01-25] MEDS: TAMSULOSIN HCL 0.4 MG CAP.SR.24H PO SCH (20:08)
[2019-01-26] MEDS: BLOOD SUGAR DIAGNOSTIC 1 EACH STRIP VI SCH ×4 (06:12→20:28)
[2019-01-26 07:30] VITALS: BP 129/78
[2019-01-26] MEDS: DIVALPROEX SPRINKLE 125 MG CAP.SPRINK PO SCH ×3 (08:15→20:21)
[2019-01-26] MEDS: PANTOPRAZOLE SODIUM 40 MG TABLET.DR PO SCH (08:15)
[2019-01-26] MEDS: LOSARTAN POTASSIUM 50 MG TABLET PO SCH (08:16)
[2019-01-26] MEDS: DOCUSATE SODIUM 100 MG CAPSULE PO SCH ×2 (08:16→16:46)
[2019-01-26] MEDS: CITALOPRAM 20 MG TABLET PO SCH (08:16)
[2019-01-26] MEDS: METOPROLOL TARTRATE 50 MG TABLET PO SCH ×2 (08:17→20:22)
[2019-01-26] MEDS: AMLODIPINE 5 MG TABLET PO SCH ×2 (08:17→20:22)
[2019-01-26] MEDS: MULTIVIT, IRON, MIN NO. 8, FA TABLET PO SCH (08:17)
[2019-01-26] MEDS: METFORMIN HCL 500 MG TABLET PO SCH ×2 (08:17→16:46)
[2019-01-26] MEDS: MAGNESIUM OXIDE 400 MG TABLET PO SCH ×2 (08:18→16:46)
[2019-01-26 16:00] VITALS: BP 131/75
[2019-01-26] MEDS: INSULIN REGULAR, HUMAN 300 UNIT/3 ML VIAL SQ PRN ×2 (18:34→20:38)
[2019-01-26 20:15] VITALS: BP 127/77
[2019-01-26] MEDS: TAMSULOSIN HCL 0.4 MG CAP.SR.24H PO SCH (20:21)
[2019-01-26] MEDS: ATORVASTATIN 40 MG TABLET PO SCH (20:21)
[2019-01-26] MEDS: QUETIAPINE FUMARATE 100 MG TABLET PO SCH (20:21)
[2019-01-27] MEDS: BLOOD SUGAR DIAGNOSTIC 1 EACH STRIP VI SCH ×4 (06:33→20:35)
[2019-01-27 07:30] VITALS: BP 121/76
[2019-01-27] MEDS: MULTIVIT, IRON, MIN NO. 8, FA TABLET PO SCH (08:29)
[2019-01-27] MEDS: DIVALPROEX SPRINKLE 125 MG CAP.SPRINK PO SCH ×3 (08:29→20:28)
[2019-01-27] MEDS: LOSARTAN POTASSIUM 50 MG TABLET PO SCH (08:30)
[2019-01-27] MEDS: MAGNESIUM OXIDE 400 MG TABLET PO SCH ×2 (08:30→16:26)
[2019-01-27] MEDS: DOCUSATE SODIUM 100 MG CAPSULE PO SCH ×2 (08:30→16:26)
[2019-01-27] MEDS: CITALOPRAM 20 MG TABLET PO SCH (08:31)
[2019-01-27] MEDS: METOPROLOL TARTRATE 50 MG TABLET PO SCH ×2 (08:31→20:29)
[2019-01-27] MEDS: METFORMIN HCL 500 MG TABLET PO SCH ×2 (08:31→18:54)
[2019-01-27] MEDS: PANTOPRAZOLE SODIUM 40 MG TABLET.DR PO SCH (08:32)
[2019-01-27] MEDS: AMLODIPINE 5 MG TABLET PO SCH ×2 (08:32→20:29)
[2019-01-27] MEDS: INSULIN REGULAR, HUMAN 300 UNIT/3 ML VIAL SQ PRN ×2 (12:10→20:38)
[2019-01-27 16:00] VITALS: BP 111/67
[2019-01-27] MEDS: QUETIAPINE FUMARATE 100 MG TABLET PO SCH (20:29)
[2019-01-27] MEDS: ATORVASTATIN 40 MG TABLET PO SCH (20:29)
[2019-01-27] MEDS: TAMSULOSIN HCL 0.4 MG CAP.SR.24H PO SCH (20:29)
[2019-01-27 20:36] VITALS: BP 134/85
[2019-01-28] MEDS: BLOOD SUGAR DIAGNOSTIC 1 EACH STRIP VI SCH ×4 (06:33→20:24)
[2019-01-28 07:30] VITALS: BP 123/78
[2019-01-28] MEDS: DIVALPROEX SPRINKLE 125 MG CAP.SPRINK PO SCH ×3 (08:18→20:23)
[2019-01-28] MEDS: CITALOPRAM 20 MG TABLET PO SCH (08:19)
[2019-01-28] MEDS: MULTIVIT, IRON, MIN NO. 8, FA TABLET PO SCH (08:19)
[2019-01-28] MEDS: METFORMIN HCL 500 MG TABLET PO SCH ×2 (08:19→17:14)
[2019-01-28] MEDS: MAGNESIUM OXIDE 400 MG TABLET PO SCH ×2 (08:20→16:56)
[2019-01-28] MEDS: AMLODIPINE 5 MG TABLET PO SCH ×2 (08:20→21:00)
[2019-01-28] MEDS: LOSARTAN POTASSIUM 50 MG TABLET PO SCH (08:21)
[2019-01-28] MEDS: DOCUSATE SODIUM 100 MG CAPSULE PO SCH ×2 (08:21→16:56)
[2019-01-28] MEDS: METOPROLOL TARTRATE 50 MG TABLET PO SCH ×2 (08:22→21:00)
[2019-01-28] MEDS: PANTOPRAZOLE SODIUM 40 MG TABLET.DR PO SCH (08:22)
[2019-01-28] MEDS: INSULIN REGULAR, HUMAN 300 UNIT/3 ML VIAL SQ PRN ×3 (11:39→21:32)
[2019-01-28 15:52] VITALS: BP 106/66
[2019-01-28 20:00] VITALS: BP 126/79
[2019-01-28] MEDS: TAMSULOSIN HCL 0.4 MG CAP.SR.24H PO SCH (20:23)
[2019-01-28] MEDS: QUETIAPINE FUMARATE 100 MG TABLET PO SCH (20:23)
[2019-01-28] MEDS: ATORVASTATIN 40 MG TABLET PO SCH (20:23)
[2019-01-29] MEDS: BLOOD SUGAR DIAGNOSTIC 1 EACH STRIP VI SCH ×4 (07:01→20:50)
[2019-01-29 07:30] VITALS: BP 113/73
[2019-01-29] MEDS: DIVALPROEX SPRINKLE 125 MG CAP.SPRINK PO SCH ×3 (08:23→20:34)
[2019-01-29] MEDS: CITALOPRAM 20 MG TABLET PO SCH (08:24)
[2019-01-29] MEDS: MAGNESIUM OXIDE 400 MG TABLET PO SCH ×2 (08:24→17:00)
[2019-01-29] MEDS: DOCUSATE SODIUM 100 MG CAPSULE PO SCH ×2 (08:25→17:01)
[2019-01-29] MEDS: METFORMIN HCL 500 MG TABLET PO SCH ×2 (08:25→17:00)
[2019-01-29] MEDS: LOSARTAN POTASSIUM 50 MG TABLET PO SCH (08:25)
[2019-01-29] MEDS: METOPROLOL TARTRATE 50 MG TABLET PO SCH ×2 (08:25→20:36)
[2019-01-29] MEDS: PANTOPRAZOLE SODIUM 40 MG TABLET.DR PO SCH (08:25)
[2019-01-29] MEDS: AMLODIPINE 5 MG TABLET PO SCH ×2 (08:26→20:36)
[2019-01-29] MEDS: MULTIVIT, IRON, MIN NO. 8, FA TABLET PO SCH (08:26)
[2019-01-29] MEDS: INSULIN REGULAR, HUMAN 300 UNIT/3 ML VIAL SQ PRN ×3 (12:01→20:47)
[2019-01-29 16:00] VITALS: BP 118/72
[2019-01-29 20:12] VITALS: BP 116/54
[2019-01-29] MEDS: ATORVASTATIN 40 MG TABLET PO SCH (20:35)
[2019-01-29] MEDS: TAMSULOSIN HCL 0.4 MG CAP.SR.24H PO SCH (20:35)
[2019-01-29] MEDS: QUETIAPINE FUMARATE 100 MG TABLET PO SCH (20:35)
[2019-01-30] MEDS: BLOOD SUGAR DIAGNOSTIC 1 EACH STRIP VI SCH ×4 (06:42→21:17)
[2019-01-30 07:30] VITALS: BP 119/74
[2019-01-30] MEDS: LORAZEPAM 1 MG TABLET PO PRN (08:14)
[2019-01-30] MEDS: DIVALPROEX SPRINKLE 125 MG CAP.SPRINK PO SCH ×3 (08:45→21:16)
[2019-01-30] MEDS: DOCUSATE SODIUM 100 MG CAPSULE PO SCH ×2 (08:45→16:47)
[2019-01-30] MEDS: MULTIVIT, IRON, MIN NO. 8, FA TABLET PO SCH (08:45)
[2019-01-30] MEDS: AMLODIPINE 5 MG TABLET PO SCH ×2 (08:46→22:07)
[2019-01-30] MEDS: CITALOPRAM 20 MG TABLET PO SCH (08:46)
[2019-01-30] MEDS: LOSARTAN POTASSIUM 50 MG TABLET PO SCH (08:46)
[2019-01-30] MEDS: METFORMIN HCL 500 MG TABLET PO SCH ×2 (08:46→17:03)
[2019-01-30] MEDS: PANTOPRAZOLE SODIUM 40 MG TABLET.DR PO SCH (08:46)
[2019-01-30] MEDS: METOPROLOL TARTRATE 50 MG TABLET PO SCH ×2 (08:47→22:06)
[2019-01-30] MEDS: MAGNESIUM OXIDE 400 MG TABLET PO SCH ×2 (08:47→16:47)
[2019-01-30 15:27] VITALS: BP 127/70
[2019-01-30] MEDS: INSULIN REGULAR, HUMAN 300 UNIT/3 ML VIAL SQ PRN ×2 (16:45→21:19)
[2019-01-30 20:00] VITALS: BP 120/81
[2019-01-30 20:20] VITALS: BP 125/76
[2019-01-30] MEDS: ATORVASTATIN 40 MG TABLET PO SCH (21:17)
[2019-01-30] MEDS: QUETIAPINE FUMARATE 100 MG TABLET PO SCH (21:17)
[2019-01-30] MEDS: TAMSULOSIN HCL 0.4 MG CAP.SR.24H PO SCH (21:17)
[2019-01-31] MEDS: BLOOD SUGAR DIAGNOSTIC 1 EACH STRIP VI SCH ×4 (06:42→20:28)
[2019-01-31 07:30] VITALS: BP 132/80
[2019-01-31] MEDS: LORAZEPAM 1 MG TABLET PO PRN (08:13)
[2019-01-31] MEDS: PANTOPRAZOLE SODIUM 40 MG TABLET.DR PO SCH (08:55)
[2019-01-31] MEDS: METFORMIN HCL 500 MG TABLET PO SCH ×2 (08:55→17:50)
[2019-01-31] MEDS: MAGNESIUM OXIDE 400 MG TABLET PO SCH ×2 (08:55→17:50)
[2019-01-31] MEDS: LOSARTAN POTASSIUM 50 MG TABLET PO SCH (08:56)
[2019-01-31] MEDS: MULTIVIT, IRON, MIN NO. 8, FA TABLET PO SCH (08:56)
[2019-01-31] MEDS: CITALOPRAM 20 MG TABLET PO SCH (08:56)
[2019-01-31] MEDS: DOCUSATE SODIUM 100 MG CAPSULE PO SCH ×2 (08:56→17:50)
[2019-01-31] MEDS: METOPROLOL TARTRATE 50 MG TABLET PO SCH ×2 (08:56→20:09)
[2019-01-31] MEDS: AMLODIPINE 5 MG TABLET PO SCH ×2 (08:57→20:08)
[2019-01-31] MEDS: DIVALPROEX SPRINKLE 125 MG CAP.SPRINK PO SCH ×2 (09:10→17:50)
[2019-01-31 16:25] VITALS: BP 125/75
[2019-01-31] MEDS: INSULIN REGULAR, HUMAN 300 UNIT/3 ML VIAL SQ PRN ×2 (17:51→20:29)
[2019-01-31 20:00] VITALS: BP 128/83
[2019-01-31] MEDS: QUETIAPINE FUMARATE 100 MG TABLET PO SCH (20:08)
[2019-01-31] MEDS: TAMSULOSIN HCL 0.4 MG CAP.SR.24H PO SCH (20:08)
[2019-01-31] MEDS: ATORVASTATIN 40 MG TABLET PO SCH (20:08)
[2019-02-01] MEDS: BLOOD SUGAR DIAGNOSTIC 1 EACH STRIP VI SCH ×4 (06:33→20:23)
[2019-02-01 07:46] VITALS: BP 105/69
[2019-02-01] MEDS: METFORMIN HCL 500 MG TABLET PO SCH ×2 (08:10→17:21)
[2019-02-01] MEDS: PANTOPRAZOLE SODIUM 40 MG TABLET.DR PO SCH (08:10)
[2019-02-01] MEDS: MULTIVIT, IRON, MIN NO. 8, FA TABLET PO SCH (08:10)
[2019-02-01] MEDS: CITALOPRAM 20 MG TABLET PO SCH (08:10)
[2019-02-01] MEDS: DIVALPROEX SPRINKLE 125 MG CAP.SPRINK PO SCH ×2 (08:10→17:21)
[2019-02-01] MEDS: DOCUSATE SODIUM 100 MG CAPSULE PO SCH ×2 (08:11→17:21)
[2019-02-01] MEDS: MAGNESIUM OXIDE 400 MG TABLET PO SCH ×2 (08:11→17:21)
[2019-02-01] MEDS: INSULIN REGULAR, HUMAN 300 UNIT/3 ML VIAL SQ PRN ×4 (08:21→20:58)
[2019-02-01] MEDS: LOSARTAN POTASSIUM 50 MG TABLET PO SCH (09:00)
[2019-02-01] MEDS: AMLODIPINE 5 MG TABLET PO SCH ×2 (09:00→20:28)
[2019-02-01] MEDS: METOPROLOL TARTRATE 50 MG TABLET PO SCH ×2 (09:00→20:28)
[2019-02-01 16:00] VITALS: BP 137/80
[2019-02-01] MEDS: QUETIAPINE FUMARATE 100 MG TABLET PO SCH (20:28)
[2019-02-01] MEDS: ATORVASTATIN 40 MG TABLET PO SCH (20:28)
[2019-02-01] MEDS: TAMSULOSIN HCL 0.4 MG CAP.SR.24H PO SCH (20:28)
[2019-02-01 20:42] VITALS: BP 131/97
[2019-02-01] MEDS: TEMAZEPAM 7.5 MG CAPSULE PO PRN (22:07)
[2019-02-02] MEDS: BLOOD SUGAR DIAGNOSTIC 1 EACH STRIP VI SCH ×4 (06:41→20:07)
[2019-02-02 07:30] VITALS: BP 127/99
[2019-02-02] MEDS: MAGNESIUM OXIDE 400 MG TABLET PO SCH ×2 (08:34→16:31)
[2019-02-02] MEDS: DIVALPROEX SPRINKLE 125 MG CAP.SPRINK PO SCH ×2 (08:35→16:31)
[2019-02-02] MEDS: METOPROLOL TARTRATE 50 MG TABLET PO SCH ×2 (08:35→20:05)
[2019-02-02] MEDS: PANTOPRAZOLE SODIUM 40 MG TABLET.DR PO SCH (08:35)
[2019-02-02] MEDS: DOCUSATE SODIUM 100 MG CAPSULE PO SCH ×2 (08:36→16:31)
[2019-02-02] MEDS: CITALOPRAM 20 MG TABLET PO SCH (08:36)
[2019-02-02] MEDS: METFORMIN HCL 500 MG TABLET PO SCH ×2 (08:37→17:41)
[2019-02-02] MEDS: AMLODIPINE 5 MG TABLET PO SCH ×2 (08:37→20:06)
[2019-02-02] MEDS: LOSARTAN POTASSIUM 50 MG TABLET PO SCH (08:43)
[2019-02-02] MEDS: MULTIVIT, IRON, MIN NO. 8, FA TABLET PO SCH (08:43)
[2019-02-02 16:00] VITALS: BP 114/74
[2019-02-02] MEDS: INSULIN REGULAR, HUMAN 300 UNIT/3 ML VIAL SQ PRN ×2 (16:29→20:14)
[2019-02-02] MEDS: TAMSULOSIN HCL 0.4 MG CAP.SR.24H PO SCH (20:05)
[2019-02-02] MEDS: QUETIAPINE FUMARATE 100 MG TABLET PO SCH (20:05)
[2019-02-02] MEDS: ATORVASTATIN 40 MG TABLET PO SCH (20:05)
[2019-02-02 20:56] VITALS: BP 128/81
[2019-02-02] MEDS: TEMAZEPAM 7.5 MG CAPSULE PO PRN (22:04)
[2019-02-03] MEDS: BLOOD SUGAR DIAGNOSTIC 1 EACH STRIP VI SCH ×4 (06:37→20:16)
[2019-02-03 07:30] VITALS: BP 116/70
[2019-02-03] MEDS: MULTIVIT, IRON, MIN NO. 8, FA TABLET PO SCH (08:35)
[2019-02-03] MEDS: LOSARTAN POTASSIUM 50 MG TABLET PO SCH (08:35)
[2019-02-03] MEDS: METFORMIN HCL 500 MG TABLET PO SCH ×2 (08:35→17:58)
[2019-02-03] MEDS: PANTOPRAZOLE SODIUM 40 MG TABLET.DR PO SCH (08:35)
[2019-02-03] MEDS: DOCUSATE SODIUM 100 MG CAPSULE PO SCH ×2 (08:36→17:58)
[2019-02-03] MEDS: AMLODIPINE 5 MG TABLET PO SCH ×2 (08:36→20:09)
[2019-02-03] MEDS: DIVALPROEX SPRINKLE 125 MG CAP.SPRINK PO SCH ×2 (08:36→17:57)
[2019-02-03] MEDS: METOPROLOL TARTRATE 50 MG TABLET PO SCH ×2 (08:36→20:10)
[2019-02-03] MEDS: CITALOPRAM 20 MG TABLET PO SCH (08:36)
[2019-02-03] MEDS: MAGNESIUM OXIDE 400 MG TABLET PO SCH ×2 (08:36→17:58)
[2019-02-03] MEDS: INSULIN REGULAR, HUMAN 300 UNIT/3 ML VIAL SQ PRN ×2 (13:55→20:19)
[2019-02-03 16:38] VITALS: BP 129/78
[2019-02-03] MEDS: ATORVASTATIN 40 MG TABLET PO SCH (20:09)
[2019-02-03] MEDS: TAMSULOSIN HCL 0.4 MG CAP.SR.24H PO SCH (20:09)
[2019-02-03] MEDS: QUETIAPINE FUMARATE 100 MG TABLET PO SCH (20:09)
[2019-02-03 20:16] VITALS: BP 138/87
[2019-02-04] MEDS: BLOOD SUGAR DIAGNOSTIC 1 EACH STRIP VI SCH ×4 (06:29→20:16)
[2019-02-04 08:12] VITALS: BP 117/70
[2019-02-04] MEDS: LORAZEPAM 1 MG TABLET PO PRN (08:12)
[2019-02-04] MEDS: MULTIVIT, IRON, MIN NO. 8, FA TABLET PO SCH (08:43)
[2019-02-04] MEDS: DOCUSATE SODIUM 100 MG CAPSULE PO SCH ×2 (08:43→16:29)
[2019-02-04] MEDS: MAGNESIUM OXIDE 400 MG TABLET PO SCH ×2 (08:43→16:29)
[2019-02-04] MEDS: METFORMIN HCL 500 MG TABLET PO SCH ×2 (08:43→17:26)
[2019-02-04] MEDS: DIVALPROEX SPRINKLE 125 MG CAP.SPRINK PO SCH ×2 (08:43→16:30)
[2019-02-04] MEDS: PANTOPRAZOLE SODIUM 40 MG TABLET.DR PO SCH (08:43)
[2019-02-04] MEDS: AMLODIPINE 5 MG TABLET PO SCH ×2 (08:43→20:07)
[2019-02-04] MEDS: CITALOPRAM 20 MG TABLET PO SCH (08:43)
[2019-02-04] MEDS: LOSARTAN POTASSIUM 50 MG TABLET PO SCH (08:44)
[2019-02-04] MEDS: METOPROLOL TARTRATE 50 MG TABLET PO SCH ×2 (08:44→20:08)
[2019-02-04] MEDS: INSULIN REGULAR, HUMAN 300 UNIT/3 ML VIAL SQ PRN ×4 (10:44→20:19)
[2019-02-04 16:26] VITALS: BP 144/69
[2019-02-04 20:07] VITALS: BP 139/81
[2019-02-04] MEDS: ATORVASTATIN 40 MG TABLET PO SCH (20:07)
[2019-02-04] MEDS: QUETIAPINE FUMARATE 100 MG TABLET PO SCH (20:07)
[2019-02-04] MEDS: TAMSULOSIN HCL 0.4 MG CAP.SR.24H PO SCH (20:07)
[2019-02-05] MEDS: BLOOD SUGAR DIAGNOSTIC 1 EACH STRIP VI SCH ×4 (06:40→20:11)
[2019-02-05] MEDS: LORAZEPAM 1 MG TABLET PO PRN ×2 (08:09→15:50)
[2019-02-05 08:23] VITALS: BP 115/71
[2019-02-05] MEDS: LOSARTAN POTASSIUM 50 MG TABLET PO SCH (08:33)
[2019-02-05] MEDS: METFORMIN HCL 500 MG TABLET PO SCH ×2 (08:33→17:09)
[2019-02-05] MEDS: MULTIVIT, IRON, MIN NO. 8, FA TABLET PO SCH (08:33)
[2019-02-05] MEDS: DIVALPROEX SPRINKLE 125 MG CAP.SPRINK PO SCH ×2 (08:34→16:37)
[2019-02-05] MEDS: DOCUSATE SODIUM 100 MG CAPSULE PO SCH ×2 (08:34→16:37)
[2019-02-05] MEDS: AMLODIPINE 5 MG TABLET PO SCH ×2 (08:34→20:15)
[2019-02-05] MEDS: METOPROLOL TARTRATE 50 MG TABLET PO SCH ×2 (08:34→20:14)
[2019-02-05] MEDS: CITALOPRAM 20 MG TABLET PO SCH (08:34)
[2019-02-05] MEDS: MAGNESIUM OXIDE 400 MG TABLET PO SCH ×2 (08:34→16:37)
[2019-02-05] MEDS: PANTOPRAZOLE SODIUM 40 MG TABLET.DR PO SCH (08:35)
[2019-02-05] MEDS: INSULIN REGULAR, HUMAN 300 UNIT/3 ML VIAL SQ PRN ×4 (08:36→20:20)
[2019-02-05 16:26] VITALS: BP 124/79
[2019-02-05 20:00] VITALS: BP 126/83
[2019-02-05] MEDS: TAMSULOSIN HCL 0.4 MG CAP.SR.24H PO SCH (20:13)
[2019-02-05] MEDS: ATORVASTATIN 40 MG TABLET PO SCH (20:13)
[2019-02-05] MEDS: QUETIAPINE FUMARATE 100 MG TABLET PO SCH (20:13)
[2019-02-06] MEDS: BLOOD SUGAR DIAGNOSTIC 1 EACH STRIP VI SCH ×2 (06:36→11:39)
[2019-02-06 08:03] VITALS: BP 121/76
[2019-02-06] MEDS: PANTOPRAZOLE SODIUM 40 MG TABLET.DR PO SCH (08:30)
[2019-02-06] MEDS: DOCUSATE SODIUM 100 MG CAPSULE PO SCH (08:30)
[2019-02-06] MEDS: MULTIVIT, IRON, MIN NO. 8, FA TABLET PO SCH (08:30)
[2019-02-06] MEDS: METFORMIN HCL 500 MG TABLET PO SCH (08:30)
[2019-02-06] MEDS: MAGNESIUM OXIDE 400 MG TABLET PO SCH (08:30)
[2019-02-06] MEDS: CITALOPRAM 20 MG TABLET PO SCH (08:30)
[2019-02-06] MEDS: DIVALPROEX SPRINKLE 125 MG CAP.SPRINK PO SCH (08:30)
[2019-02-06] MEDS: METOPROLOL TARTRATE 50 MG TABLET PO SCH (08:31)
[2019-02-06] MEDS: AMLODIPINE 5 MG TABLET PO SCH (08:31)
[2019-02-06] MEDS: LOSARTAN POTASSIUM 50 MG TABLET PO SCH (08:31)
[2019-02-06] MEDS: INSULIN REGULAR, HUMAN 300 UNIT/3 ML VIAL SQ PRN (11:42)
[2019-02-06 16:00] VITALS: BP 115/67
== END 2019-02-06 16:15 | DRG 885 ==
LOC: ER 12:08 → GPS 14:44
PROVIDERS: ADMIT Psychiatry & Neurology Psychiatry; ATTEND Internal Medicine
DX: F29 Unspecified psychosis not due to a substance or known physiological condition (principal); N18.9 Chronic kidney disease, unspecified; F03.91 Unspecified dementia, unspecified severity, with behavioral disturbance; E44.0 Moderate protein-calorie malnutrition; E87.1 Hypo-osmolality and hyponatremia; F31.9 Bipolar disorder, unspecified; E11.22 Type 2 diabetes mellitus with diabetic chronic kidney disease; I12.9 Hypertensive chronic kidney disease with stage 1 through stage 4 chronic kidney disease, or unspecified chronic kidney disease; K21.9 Gastro-esophageal reflux disease without esophagitis; Z87.11 Personal history of peptic ulcer disease; Z79.899 Other long term (current) drug therapy; Z79.4 Long term (current) use of insulin
CPT/HCPCS: 36415; 80164; 80307; 85025; 93005; A4663; C1758; G0480; G0480-TC; J1815; J2358